=== PATIENT | male | born 1970 | race Caucasian/White ===

== ENCOUNTER 2024-03-14 15:20 | Emergency (ER) | payer BC, OTHER ==
[2024-03-14 17:10] LABS: BASOPHILS ABSOLUTE AUTO 0.03 K/uL (0.00-0.10); BASOPHILS PERCENT AUTO 0.3 % (0.1-1.3); EOSINOPHILS ABSOLUTE AUTO 0.07 K/uL (0.00-0.40); EOSINOPHILS PERCENT AUTO 0.7 % (0.0-5.4); HEMATOCRIT 31.7 % (38.4-49.7); HEMOGLOBIN 11.1 g/dL (12.9-16.9); IMMATURE GRAN ABSOLUTE AUTO 0.05 K/uL (0.00-0.23); IMMATURE GRAN PERCENT AUTO 0.5 % (0.0-0.7); LYMPHOCYTES ABSOLUTE AUTO 0.23 K/uL (0.8-3.3); LYMPHOCYTES PERCENT AUTO 2.2 % (11.4-47.7); MEAN CORPUSCULAR HEMOGLOBIN 31.2 pg (31.6-35.5); MONOCYTES ABSOLUTE AUTO 0.37 K/uL (0.20-0.90); MONOCYTES PERCENT AUTO 3.6 % (3.3-12.6); NEUTROPHILS ABSOLUTE AUTO 9.49 K/uL (1.0-7.6); NEUTROPHILS PERCENT AUTO 92.7 % (40.0-78.1); PLATELET COUNT,PLT 126 K/uL (130-375); RED BLOOD CELL COUNT 3.56 M/uL (4.14-5.76); WHITE BLOOD CELL COUNT,WBC 10.2 K/uL (3.2-11.0)
[2024-03-14 17:35] LABS: A/G RATIO 0.7 (1.2-2.2); ALANINE AMINOTRANSFERASE,ALT 43 U/L (12-78); ALBUMIN 3.2 g/dL (3.4-5.0); ALKALINE PHOSPHATASE 101 U/L (46-116); ASPARTATE AMNIOTRANSFERASE,AST 19 U/L (15-37); BILIRUBIN TOTAL 0.5 mg/dL (0.2-1.0); BLOOD UREA NITROGEN,BUN 30 mg/dL (7-18); CALCIUM 9.8 mg/dL (8.5-10.1); CARBON DIOXIDE,CO2 31 mmol/L (21-32); CHLORIDE,CL 98 mmol/L (100-108); CREATININE 1.4 mg/dL (0.8-1.3); EST CRCL DRUG DOSING (CG) 62.75 mL/min; ESTIMATED GFR 59 mL/min (>60); GLUCOSE RANDOM 129 mg/dL (74-106); PROTEIN TOTAL,TP 7.5 g/dL (6.4-8.2); SODIUM,NA 137 mmol/L (140-148)
[2024-03-14 17:43] LABS: APPEARANCE,URINE CLEAR (CLEAR); BILIRUBIN,URINE NEGATIVE (NEGATIVE); COLOR,URINE YELLOW (YELLOW); GLUCOSE,URINE NEGATIVE (NEGATIVE); KETONES,URINE NEGATIVE (NEGATIVE); LEUKOCYTE ESTERASE,URINE NEGATIVE (NEGATIVE); NITRITE,URINE NEGATIVE (NEGATIVE); OCCULT BLOOD,URINE NEGATIVE (NEGATIVE); PH,URINE 5.5 (5.0-8.0); PROTEIN,URINE NEGATIVE (NEGATIVE); UROBILINOGEN,URINE 0.2 EU/dL (0.2-1.0)
[2024-03-14] MEDS: Sodium Chloride 0.9% 500 ML IV ONE (17:51)
[2024-03-14 18:06] LABS: RBC,URINE NOT SEEN (0-5); WBC,URINE 0-5 (0-5)
[2024-03-14 18:07] LABS: BACTERIA,URINE NOT SEEN; EPITHELIAL CELLS,URINE RARE
[2024-03-14 18:08] LABS: AMORPHOUS SEDIMENT,URINE FEW; MUCUS,URINE OCCASIONAL
[2024-03-14] MEDS: oxyCODONE 5 MG Tab PO ONE (18:08)
[2024-03-14 18:21] LABS: CORONAVIRUS COVID-19 NAA NEGATIVE (NEGATIVE); INFLUENZA A NAA NEGATIVE (NEGATIVE); INFLUENZA B NAA NEGATIVE (NEGATIVE); RESPIRATORY SYNCYTIAL VIR NAA NEGATIVE (NEGATIVE)
[2024-03-14] MEDS: cefTRIAXone 2 GM in Sodium Chloride 0.9% 50 ML IV ONE (18:51)
== END 2024-03-14 20:40 | disposition home or self-care (01) ==
LOC: JP.ED 15:20
DX: R50.9 Fever, unspecified (principal); Z79.899 Other long term (current) drug therapy; Z88.0 Allergy status to penicillin
CPT/HCPCS: 0241U; 36415; 71046; 80053; 81001; 83605; 84145; 85025; 87040; 96361; 96365; 99284; A9270; J0696; J3490; J7030